=== PATIENT | female | born 1985 | race Caucasian/White ===

== ENCOUNTER 2017-06-01 17:56 | Outpatient (CLI) | payer MEDICAID ==
[~2017-06-01] VITALS: Ht 160 cm; Wt 92.6 kg
[2017-06-01 18:08] VITALS: BP 129/84; PULSE 75; Ht 160 cm; Wt 92.6 kg
[2017-06-01] MEDS ORDERED: PNV11TAB PO (18:10)
--- NOTE | 2017-06-01 21:08 | RADRPT ---
PROCEDURE: US OB biophysical profile. CLINICAL INDICATION: decreased movements TECHNIQUE: Multiple sonographic images of the pelvis were obtained. The images were reviewed on a PACS workstation. COMPARISON: No pertinent prior examinations were submitted for comparison. FINDINGS: There is a single viable intrauterine gestation. Cardiac activity is present with 137 beats per min [place]. There is a vertex presentation. The placenta is anterior, grade II to III appearance. There is a normal amount of amniotic fluid with an MY = 11.9 cm. Biophysical profile: movement 2/2 tone 2/2. breathing 2/2 MY 2/2 Total 02/17 IMPRESSION: Normal biophysical profile. RPTAT: HIKT . .Johnny Ma MD, MD Date Time Electronically viewed and signed by .Johnny Ma MD, on 06/01/2017 21:08 .T/
[2017-06-01] MEDS ORDERED: HYDROCODONE/APAP (5/325) TAB PO ONE (23:00)
--- NOTE | 2017-06-02 00:39 | TRIAGE ---
OB Triage Datetime Report Generated by CPN: 06/02/2017 00:39 Datetime: 06/01/2017 23:48 Stage of : OB Triage Pain Assessment Pain Scale: 2 Pain Presence: Intermittent Pain Type: Contraction Pain Location: Abdomen Datetime: 06/01/2017 23:10 Pain Assessment Pain Scale: 5 Pain Presence: Intermittent Pain Type: Contraction Pain Location: Abdomen; Back Pain Relief Measures: Comfort Measures Datetime: 06/01/2017 22:42 Stage of : OB Triage Labor Evaluation Frequency: OCC Monitor Mode: External Duration (sec)2399: 40-60 Quality: Mild Pattern: Normal: <= 5 Contractions in 10 Minutes Resting Tone [place]: Relaxed Heart Rate FHR Baseline Rate: 145 Monitor Mode: External US Variability: Moderate 6-25 bpm Accelerations: 15X15 Category: Category I Datetime: 06/01/2017 22:15 Stage of : OB Triage Labor Evaluation Frequency: 2-5 Monitor Mode: External Duration (sec)2399: 40-80 Quality: Mild Pattern: Normal: <= 5 Contractions in 10 Minutes Resting Tone [place]: Relaxed FHR Baseline Changes: No Baseline Change Variability: Moderate 6-25 bpm Accelerations: 15X15 Decelerations: None Category: Category I Datetime: 06/01/2017 21:25 Stage of : OB Triage Labor Evaluation Frequency: 2-7 Monitor Mode: External Duration (sec)2399: 40-60 Quality: Mild Pattern: Normal: <= 5 Contractions in 10 Minutes Resting Tone [place]: Relaxed Heart Rate FHR Baseline Rate: 135 Monitor Mode: External US Variability: Moderate 6-25 bpm Accelerations: 15X15 Decelerations: None Category: Category I Datetime: 06/01/2017 21:21 Monitor Mode: External Datetime: 06/01/2017 20:50 Vaginal Exam Dilatation (cms): 0.0 Effacement (%): 0 Station: -4 Membrane Status: Intact Cervix, Consistency: Moderate Datetime: 06/01/2017 20:30 Stage of : OB Triage Labor Evaluation Frequency: 5-10 Monitor Mode: External Duration (sec)2399: 40-70 Quality: Mild Resting Tone [place]: Relaxed Heart Rate FHR Baseline Rate: 135 Variability: Moderate 6-25 bpm Accelerations: 15X15 Decelerations: None Category: Category I Datetime: 06/01/2017 19:45 Stage of : OB Triage Datetime: 06/01/2017 19:35 Stage of : OB Triage Datetime: 06/01/2017 19:20 Stage of : OB Triage Labor Evaluation Frequency: 2-7 Monitor Mode: External Duration (sec)2399: 40-60 Quality: Mild Resting Tone [place]: Relaxed Heart Rate FHR Baseline Rate: 155 Monitor Mode: External US Variability: Moderate 6-25 bpm Accelerations: 15X15 Comments: PERIODS OF MINIMAL VARIABILITY Datetime: 06/01/2017 18:26 Stage of : OB Triage Datetime: 06/01/2017 18:05 Stage of : OB Triage Assessment Type: Triage Maternal Assessment Level of Consciousness: Fully Conscious DTR's/Clonus: DTRs 2+; No Clonus Headache: Denies Blurred Vision: No Respiratory Effort: Unlabored; Regular Rhythm; Equal Expansion Breath Sounds, Left: Clear and Equal Breath Sounds, Right: Clear and Equal Nausea/Vomiting: Denies RUQ Epigastric Pain: Denies Facial Edema: None Temperature Route: Axillary Fall Risk Assessment History of Falling: (0) No Secondary Diagnosis: (0) No Ambulatory Aid: (0) Bedrest/Nurse Assist IV Therapy: (0) No Gait: (0) Normal/Bedrest/Immobile Mental Status: (0) Oriented to Own Ability Fall Score: 0 Fall Risk Score Definition: No Risk: No action required Labor Evaluation Frequency: 0 Monitor Mode: External Resting Tone [place]: Relaxed Heart Rate FHR Baseline Rate: 150 Monitor Mode: External US Variability: Moderate 6-25 bpm Accelerations: 10X10 Decelerations: None Category: Category I Pain Assessment Pain Scale: 3 Pain Presence: Intermittent Pain Type: Cramping; Contraction Pain Location: Abdomen; Perineum Pain Goal: 3 Pain Relief Measures: Comfort Measures Datetime: 06/01/2017 18:04 EGA: 37.2 Datetime: 06/01/2017 18:03 Time of Arrival: 06/01/2017 17:48 Arrived By: Ambulatory Arrived From: Home Chief Complaint: C/O UC'S Q 10-15 MIN, DENIES BLEEDING, OR LEAKING Movement: Present Contractions: Irregular Contractions: 10-15 Rupture of Membranes: Denies Vaginal Bleeding: None Vaginal Discharge: Denies Recent Sexual Intercouse: Denies Abdominal Trauma: Not Applicable Patient Complaints: Contractions; Cramping Time Provider Notified: 06/01/2017 18:24 Provider Notified: DR. JO Initial Plan: MONITOR, VE, CALL
--- NOTE | 2017-06-02 07:42 | PN ---
Triage Information Date/Time Reason for visit: Uterine contractions Weeks of Gestation 37 2/7 /Para G1 Hypertention: none Additional information Late Entry Note: 31 Year-old G1 with SIUP at 37 2/7 weeks presents with a chief complaint of irreg ucs. She has been receiving her care with Dr. Martínez. She states good movement. She denies nausea, vomiting, shortness of breath, chest pain, abdominal pain, headache, visual changes, vaginal bleeding or LOF. Objective Vital Signs Date Time Temp Pulse Resp B/P Pulse Ox O2 Delivery O2 Flow Rate FiO2 06/01/17 18:08 98.9 75 129/84 Heart Rate: 130's Contractions: 6-10 Minutes Apart Disposition: Discharge Assessment/Plan 31 Year-old G1 with SIUP at 37 2/7 weeks with irreg ucs and no cx changes in 2 hrs interval. - FHR: No sign of metabolic acidosis- Category I - Continuous EFM, toco - Reactive NST. BPP: 10/10, MY: 11.9 - Symptoms and sign of labor, preeclampsia, kick count discussed with patient, she voiced understanding. All of her questions answered. - Patient was given one dose of norco, she states is comfortable with irreg ucs. She discharged home in stable condition with the appropriate discharge instructions provided. I would like patient to have close follow-up with her primary physician or outpatient clinic in 1-2 days or return to the ER for worsening symptoms or any other urgent concerns. DIONNE LYNN Jun 02, 2017 07:42
== END 2017-06-01 23:48 | disposition home or self-care (01) ==
LOC: OBT 17:56 → L-D 17:58 → OBT 23:48
PROVIDERS: ATTEND Obstetrics & Gynecology
DX: O62.9 Abnormality of forces of labor, unspecified (principal); Z3A.37 37 weeks gestation of pregnancy
CPT/HCPCS: 76818; Z7500; Z7610; G0463

== ENCOUNTER 2017-06-12 05:37 | Outpatient (CLI) | payer MEDICAID ==
[~2017-06-12] VITALS: Ht 162.6 cm; Wt 94.0 kg
[~2017-06-12 05:37] MED LIST: PNV11TAB PO
[2017-06-12 05:53] VITALS: BP 120/76; PULSE 75; RESP 16; Ht 162.6 cm; Wt 94.0 kg
--- NOTE | 2017-06-12 07:17 | RADRPT ---
PROCEDURE: US OB biophysical profile. CLINICAL INDICATION: decreased movements, contractions TECHNIQUE: Multiple sonographic images of the pelvis were obtained. The images were reviewed on a PACS workstation. COMPARISON: US PELVIS 06/01/2017 FINDINGS: There is a single viable intrauterine gestation. Cardiac activity is present with 135 beats per min [place]. There is a vertex presentation. The placenta is anterior. There is no evidence of placental abruption. There is a normal amount of amniotic fluid with an MY = 8.4 cm. Biophysical profile: movement 2/2 tone 2/2. breathing 2/2 MY 2/2 Total 02/17 RPTAT: AA . IMPRESSION: Normal biophysical profile. . .Rafael Maradiaga MD, MD Date Time Electronically viewed and signed by .Rafael Maradiaga MD, MD on 06/12/2017 07:17 .S/
--- NOTE | 2017-06-12 07:44 | PN ---
Triage Information Date/Time Reason for visit: Uterine contractions Weeks of Gestation 38+ /Para 1/0 Diabetes: none Hypertention: none Objective Vital Signs Date Time Temp Pulse Resp B/P Pulse Ox O2 Delivery O2 Flow Rate FiO2 06/12/17 05:53 98.0 75 16 120/76 Room Air Heart Rate: 140's Contractions: 6-10 Minutes Apart Disposition: Discharge Assessment/Plan patient will be followed up with her provider precautions discussed ROLANDO MUKHERJEE M.D. Jun 12, 2017 07:44
--- NOTE | 2017-06-12 08:24 | TRIAGE ---
OB Triage Datetime Report Generated by CPN: 06/12/2017 08:23 Datetime: 06/12/2017 07:30 Labor Evaluation Frequency: OCC Monitor Mode: External Quality: Mild Pattern: Normal: <= 5 Contractions in 10 Minutes Resting Tone [place]: Relaxed Heart Rate FHR Baseline Rate: 135 Monitor Mode: External US FHR Baseline Changes: No Baseline Change Variability: Moderate 6-25 bpm Accelerations: 15X15 Decelerations: None Category: Category I Pain Assessment Pain Scale: 2 Pain Presence: Intermittent Pain Type: Ache Pain Location: Abdomen Pain Goal: 0 Pain Relief Measures: Comfort Measures Datetime: 06/12/2017 06:40 Stage of : OB Triage Labor Evaluation Frequency: 3-9 Monitor Mode: External Duration (sec)2399: 60-120 Quality: Mild Pattern: Normal: <= 5 Contractions in 10 Minutes Resting Tone [place]: Relaxed Contraction Comments: PT DENIES FEELING ANY UC'S Heart Rate FHR Baseline Rate: 145 Monitor Mode: External US Variability: Moderate 6-25 bpm Accelerations: 15X15 Decelerations: None Pain Assessment Pain Scale: 7 Pain Presence: Intermittent Pain Type: Sharp Pain Location: Abdomen Pain Goal: 3 Pain Assessment Comments: PT DENIES FEELING ANY UC'S BUT STATES PAIN IS NOW 7/10 WHEN BABY MOVES Datetime: 06/12/2017 05:53 Stage of : OB Triage Vaginal Exam Dilatation (cms): 0.0 Effacement (%): 0 Station: -4 Exam By: EM Membrane Status: Intact Datetime: 06/12/2017 05:48 Stage of : OB Triage Assessment Type: Triage Maternal Assessment Level of Consciousness: Fully Conscious DTR's/Clonus: DTRs 2+; No Clonus Headache: Denies Blurred Vision: No Respiratory Effort: Unlabored; Regular Rhythm; Equal Expansion Breath Sounds, Left: Clear and Equal Breath Sounds, Right: Clear and Equal Nausea/Vomiting: Denies RUQ Epigastric Pain: Denies Lower Extremities Edema: None Degree: None Upper Extremities Edema: None Degree: None Facial Edema: None Temperature Route: Oral Fall Risk Assessment History of Falling: (0) No Secondary Diagnosis: (0) No Ambulatory Aid: (0) Bedrest/Nurse Assist IV Therapy: (0) No Gait: (0) Normal/Bedrest/Immobile Mental Status: (0) Oriented to Own Ability Fall Score: 0 Fall Risk Score Definition: No Risk: No action required Pain Assessment Pain Scale: 6 Pain Presence: Intermittent Pain Type: Sharp Pain Location: Abdomen Pain Goal: 3 Datetime: 06/12/2017 05:42 Contraction Comments: TOCO APPLIED Comments: US APPLIED Datetime: 06/12/2017 05:37 Time of Arrival: 06/12/2017 05:27 EGA: 38.6 Arrived By: Wheelchair Arrived From: Emergency Dept Chief Complaint: PT STATES PAIN 6/10 "WHEN BABY MOVES" Movement: Present Contractions: Regular Time Contractions Began: 06/11/2017 23:00 Contractions: 3-7 Rupture of Membranes: Denies Vaginal Bleeding: None Vaginal Discharge: Present Recent Sexual Intercouse: Denies Abdominal Trauma: Not Applicable Patient Complaints: Other Time Provider Notified: 06/12/2017 06:10 Provider Notified: SANDRO Initial Plan: EFM; VE Datetime: 06/01/2017 18:05 Fall Score: 0 Fall Risk Score Definition: No Risk: No action required Datetime: 06/01/2017 18:04 EGA: 37.2
== END 2017-06-12 07:55 | disposition home or self-care (01) ==
LOC: OBT 05:37 → L-D 05:38 → OBT 07:55
PROVIDERS: ATTEND Obstetrics & Gynecology
DX: O62.9 Abnormality of forces of labor, unspecified (principal); Z3A.38 38 weeks gestation of pregnancy
CPT/HCPCS: 76818; Z7500; G0463

== ENCOUNTER 2017-06-29 17:46 | Emergency (ER) | payer MEDICAID ==
[~2017-06-29] VITALS: Ht 157.5 cm; Wt 80.0 kg
[2017-06-29 18:09] VITALS: Ht 157.5 cm; Wt 80.0 kg
[2017-06-29 18:54] LABS: ALBUMIN 3.9 g/dl (3.3-4.9); ALBUMIN/GLOBULIN RATIO 1.11; BILIRUBIN,INDIRECT 0.2 mg/dl (0-1.1); BILIRUBIN,TOTAL 0.2 mg/dl (0.2-1.3); CALCIUM 9.8 mg/dl (8.4-10.2); CREATININE 0.79 mg/dl (0.44-1.00); POTASSIUM 4.2 mmol/L (3.5-5.1); TOTAL PROTEIN 7.4 g/dl (6.1-8.1)
[2017-06-29 18:55] LABS: ADD UMIC YES; UR ASCORBIC ACID NEGATIVE (NEGATIVE); UR BACTERIA FEW /HPF (NONE SEEN); UR BILIRUBIN (Dip) NEGATIVE (NEGATIVE); UR BLOOD (Dip) 3+ mg/dL (NEGATIVE); UR CLARITY CLOUDY (CLEAR); UR COLOR YELLOW (YELLOW); UR GLUCOSE (Dip) NEGATIVE (NEGATIVE); UR KETONES (Dip) NEGATIVE (NEGATIVE); UR LEUKOCYTE ESTERASE (Dip) 3+ Leu/ul (NEGATIVE); UR MUCUS FEW /HPF (NONE SEEN); UR NITRITE (Dip) POSITIVE (NEGATIVE); UR RBC > 182 /HPF (0-5); UR SPECIFIC GRAVITY (Dip) 1.014 (1.003-1.030); UR TOTAL PROTEIN (Dip) 2+ mg/dl (NEGATIVE); UR UROBILINOGEN (Dip) NEGATIVE (NEGATIVE)
--- NOTE | 2017-06-29 19:58 | ERD ---
ER Documentation Chief Complaint Chief Complaint sent by her OB for htn but not hypertensive here HPI This is a 31-year-old female who was sent to the emergency room for evaluation of hypertension. The patient delivered 2 weeks ago via section a well baby however she had preeclampsia which prompted the section. It appears the patient went to a clinic and her blood pressure was in the 130s and she was told to come to the emergency room. The patient is asymptomatic. She denies any chest pain or shortness of breath, no abdominal pain, no lower extremity swelling or pitting edema. A operator weapon locating radar was used. ROS All systems reviewed and are negative except as per history of present illness. Medications Home Meds Active Scripts Cephalexin* (Cephalexin*) 500 Mg Capsule, 500 MG PO BID for 7 Days, CAP Prov:AMANDA DAVIS MD 06/29/17 Reported Medications [id number] ( 19) 1 Each Tablet, 1 TAB PO DAILY, TAB 06/01/17 Allergies Allergies: Coded Allergies: No Known Allergy (Unverified , 06/29/17) PMhx/Soc Medical and Surgical Hx: pt denies Medical Hx Hx Alcohol Use: No Hx Substance Use: No Hx Tobacco Use: No Smoking Status: Unknown if ever smoked FmHx Family History: No diabetes Physical Exam Vitals Vital Signs Date Time Temp Pulse Resp B/P Pulse Ox O2 Delivery O2 Flow Rate FiO2 06/29/17 20:17 77 16 143/91 99 Room Air 06/29/17 18:09 99.1 89 18 130/82 98 Physical Exam General: Well developed, well nourished, no acute distress Head: Normocephalic, atraumatic. Eyes: Pupils equally reactive, EOM intact ENT: Moist mucous membranes Neck: Supple, no lymphadenopathy Respiratory: Lungs clear bilaterally, no distress Cardiovascular: RRR, no murmurs, rubs, or gallops Abdominal: Soft, non-tender, non-distended, no peritoneal signs : Deferred MSK: No edema, no unilateral swelling, 5/5 strength Neurologic: Alert and oriented, moving all extremities, normal speech, no focal weakness, no cerebellar signs Skin: No rash Psych: Normal mood Result Diagram: 06/29/178 06/29/178 Results 24 hrs Laboratory Tests Test 06/29/17 18:15 06/29/17 18:18 Urine Color YELLOW Urine Clarity CLOUDY Urine pH 5.0 Urine Specific [place] 1.014 Urine Ketones NEGATIVEmg/dL Urine Nitrite POSITIVEmg/dL Urine Bilirubin NEGATIVEmg/dL Urine Urobilinogen NEGATIVEmg/dL Urine Leukocyte Esterase 3+Adis/ul Urine Microscopic RBC > 182/HPF Urine Microscopic WBC > 182/HPF Urine Bacteria FEW/HPF Urine Mucus FEW/HPF Urine Hemoglobin 3+mg/dL Urine Glucose NEGATIVEmg/dL Urine Total Protein 2+mg/dl White Blood Count 12.010^3/ul Red Blood Count 4.5510^6/ul Hemoglobin 11.1g/dl Hematocrit 34.2% Mean Corpuscular Volume 75.2fl Mean Corpuscular Hemoglobin 24.4pg Mean Corpuscular Hemoglobin Concent 32.5g/dl Red Cell Distribution Width 17.1% Platelet Count 66426^3/UL Mean Platelet Volume 9.3fl Neutrophils % 67.1% Lymphocytes % 23.0% Monocytes % 7.6% Eosinophils % 1.6% Basophils % 0.3% Nucleated Red Blood Cells % 0.0/100WBC Neutrophils # 8.010^3/ul Lymphocytes # 2.810^3/ul Monocytes # 0.910^3/ul Eosinophils # 0.210^3/ul Basophils # 0.010^3/ul Nucleated Red Blood Cells # 0.010^3/ul Sodium Level 143mmol/L Potassium Level 4.2mmol/L Chloride Level 104mmol/L Carbon Dioxide Level 28mmol/L Anion Gap 15 Blood Urea Nitrogen 13mg/dl Creatinine 0.79mg/dl Glucose Level 104mg/dl Calcium Level 9.8mg/dl Total Bilirubin 0.2mg/dl Direct Bilirubin 0.00mg/dl Indirect Bilirubin 0.2mg/dl Aspartate Amino Transf (AST/SGOT) 42IU/L Alanine Aminotransferase (ALT/SGPT) 44IU/L Alkaline Phosphatase 110IU/L Lactate Dehydrogenase 601IU/L Total Protein 7.4g/dl Albumin 3.9g/dl Globulin 3.50g/dl Albumin/Globulin Ratio 1.11 Current Medications Medications (Trade) Dose Ordered Sig/Gal Route PRN Reason Start Time Stop Time Status Last Admin Dose Admin Cephalexin (Keflex) 500 mg ONCE ONCE PO 06/29/17 20:00 12/18/17 20:01 DC 06/29/17 20:10 Procedures/MDM LAB INTERPRETATION: No significant leukocytosis, no evidence of LDH elevation or liver function abnormalities. The patient has proteinuria and positive urinary tract infection MEDICAL DECISION MAKING: The patient presents to the emergency room for elevated blood pressure. The patient had a diagnosis of preeclampsia prompting section. She is grossly asymptomatic currently. Her blood pressure is only mildly elevated in the 130 systolic. I have a low pretest probability for preeclampsia , no signs of eclampsia. However, given that the patient was referred here by her OB clinic I will evaluate the patient with laboratory testing. ER COURSE: The patient does have some proteinuria and I will consult with JIG INSPECTOR. I attempted to contact her referring JIG INSPECTOR but they did not answer. The patient also has a urinary tract infection was given Keflex. The patient does have some proteinuria and her blood pressure is in the 140 systolic but she is grossly asymptomatic. Her primary JIG INSPECTOR did not answer therefore I spoke to my labor asked risk and insurance consultant. I spoke to Dr. Galan and we discussed the case. She states that given that the patient is asymptomatic with blood pressure in the 140s and known diagnosis of preeclampsia that the patient does not require hospitalization. She does recommend discharge with close primary JIG INSPECTOR follow-up. She states the patient's return for any symptoms and I advised this to the patient using a operator weapon locating radar who verbalized understanding. First dose of Keflex provided in the emergency room. And the patient can be safely discharged. I kept the patient and/or family informed of laboratory and diagnostic imaging results throughout the emergency room course. DISPOSITION PLAN: We discussed follow up with the patient's primary care doctor within 24 to 48 hours as needed. We also discussed return to the emergency room for worsening symptoms or worsening condition. Outpatient referral: The patient should follow-up with her primary OB with [facility] tomorrow for blood pressure recheck Discharge Medications: Keflex Departure Diagnosis: Primary Impression: Preeclampsia Trimester: unspecified trimester Qualified Code: O14.90 - Pre-eclampsia, antepartum Additional Impression: UTI (urinary tract infection) Urinary tract infection type: acute cystitis Hematuria presence: without hematuria Qualified Code: N30.00 - Acute cystitis without hematuria Condition: Stable AMANDA DAVIS MD Jun 29, 2017 19:58
[2017-06-29] MEDS ORDERED: CEPHALEXIN 500 MG CAP PO ONE (20:00)
[2017-06-29 20:10] LABS: BASOPHILS % 0.3 % (0.0-2.0); EOSINOPHILS # 0.2 10^3/ul (0.0-0.5); EOSINOPHILS % 1.6 % (0.0-7.0); HEMATOCRIT 34.2 % (37.0-47.0); HEMOGLOBIN 11.1 g/dl (12.0-16.0); LYMPHOCYTES # 2.8 10^3/ul (0.8-2.9); MEAN CORPUSCULAR HEMOGLOBIN 24.4 pg (29.0-33.0); MEAN CORPUSCULAR HGB CONC 32.5 g/dl (32.0-37.0); MEAN CORPUSCULAR VOLUME 75.2 fl (82.0-101.0); MEAN PLATELET VOLUME 9.3 fl (7.4-10.4); MONOCYTE # 0.9 10^3/ul (0.3-0.9); MONOCYTES % 7.6 % (0.0-11.0); NEUTROPHILS % 67.1 % (39.0-77.0); PLATELET COUNT 606 10^3/UL (140-415); RED BLOOD COUNT 4.55 10^6/ul (4.20-5.40); RED CELL DISTRIBUTION WIDTH 17.1 % (11.5-14.5)
[2017-06-29] MEDS ORDERED: CEPH500C PO (20:13)
[2017-06-29 20:17] VITALS: BP 143/91; PULSE 77; RESP 16
== END 2017-06-29 20:23 | disposition home or self-care (01) ==
LOC: E/R 17:46
DX: O14.95 Unspecified pre-eclampsia, complicating the puerperium (principal); O86.22 Infection of bladder following delivery; B96.89 Other specified bacterial agents as the cause of diseases classified elsewhere; R40.2142 Coma scale, eyes open, spontaneous, at arrival to emergency department; R40.2252 Coma scale, best verbal response, oriented, at arrival to emergency department; R40.2362 Coma scale, best motor response, obeys commands, at arrival to emergency department
CPT/HCPCS: 36415; 80053; 81001; 83615; 85025; Z7502; Z7610; 99283

== ENCOUNTER 2017-07-03 22:04 | Emergency (ER) | END 2017-07-04 03:03 | disposition home or self-care (01) ==

== ENCOUNTER 2018-12-31 13:23 | Inpatient (IN) | payer MEDICAID ==
[~2018-12-31] VITALS: Ht 160 cm; Wt 85.8 kg
[~2018-12-31 13:23] MED LIST changes: +CEPH-443 PO; +CEPH500C PO; +IBUP-1542 PO
[2018-12-31 13:57] VITALS: BP 119/77; PULSE 90; Ht 160 cm; Wt 85.8 kg
[2018-12-31] MEDS ORDERED: LANT3I SC (14:02)
[2018-12-31] MEDS ORDERED: LACTATED RINGER'S 1,000 ML IV SCH ×2 (17:00→19:00)
[2018-12-31] MEDS ORDERED: INSULIN LISPRO 100 UNIT/ML VIAL SC ONE (18:00)
[2018-12-31] MEDS ORDERED: INSULIN ASPART [NOVOLOG] 3 ML PEN SC ONE (18:00)
[2018-12-31] MEDS ORDERED: ACCU-CHEK XX ONE (18:00)
[2018-12-31] MEDS: LACTATED RINGER'S 1,000 ML IV SCH ×3 (18:02→23:09)
[2018-12-31] MEDS ORDERED: ONDANSETRON 4 MG INJ IV PRN (22:00)
[2018-12-31] MEDS ORDERED: MAGNESIUM SULFATE 4 GM/100 ML 100 ML IV ONE (22:00)
--- NOTE | 2018-12-31 22:52 | HP ---
Date/Time of Note Date/Time of Note DATE: 12/31/18 TIME: 22:48 OB - History Hx of Present Free Text/Dictation 33-year-old 2 para 1 at 34 weeks and 4 days of gestation with estimated date of delivery February 07, 2019 Patient receives care at [facility] She presents with decreased movement and uterine contractions Patient denies vaginal bleeding or leaking fluid Patient is a pre-gestational diabetic on insulin Her blood sugar on arrival was 228 subsequently she received 5 units of Humalog and the repeat blood glucose level was 143 records reviewed and indicating; Hemoglobin A1c 13.4 Estimated Due Date: Feb 07, 2019 : 2 Para: 1 Care: Good Care Obstetrical Complications: Other (Pre-gestational diabetes on insulin) Past Family/Social History * Past Medical, Surgical, Family and Obstetric Histories reviewed from chart. OB Admission Exam Vital Signs Vital Signs Vital Signs Date Temp Pulse Resp B/P (MAP) Pulse Ox O2 O2 Flow FiO2 Time Delivery Rate 12/31/18 98.4 90 119/77 13:57 (91) Physical Exam HEENT: WNL Heart: Rhythm Normal Lungs: Clear, Equal Abdomen: WNL Extremities: Normal Reflexes: Normal Cervical Dilatation: 1cm Effacement: 50% Station: -3 Membranes: Intact Heart Rate: 140's Accelerations: Accelerations Present Decelerations: No Decelerations Varibility: Moderate Contractions on Admission: 6-10 Minutes Apart Intensity: Moderate Last 72 hourBlood Glucose Bedside Glucose - 72 Hours Test 12/31/18 17:21 12/31/18 20:34 Bedside Glucose 228 mg/dL (70-220) H 143 mg/dL (70-220) Last 72 hours Lab Results CBC & BMP 12/31/18 17:50 PROCEDURE: LIMITED OBSTETRICAL ULTRASOUND, BIOPHYSICAL PROFILE CLINICAL INDICATION: 33 years of age, female. well being. Decreased movements. TECHNIQUE: Multiple sonographic images of the pelvis were obtained. Transabdominal views of the gravid uterus are available for review. The images were reviewed on a PACS workstation. COMPARISON: None available. FINDINGS: ROSALINDA February 07, 2019 EGA by ROSALINDA 34 weeks 4 days BIOPHYSICAL PROFILE: breathing movement = 2/2 tone = 2/2 motion = 2/2 Amniotic fluid = 2/2 MY = 22.3 cm. Maximum vertical pocket 7.4 cm. Single live intrauterine in cephalic presentation. heart rate measures 137 bpm. Placenta is posterior, grade 2 . Cervix (transabdominal): Not evaluated IMPRESSION: 1. Single living fetus in cephalic presentation. 2. Biophysical profile = 8/8. 3. Polyhydramnios. MY = 22.3 cm. Maximum vertical pocket 7.4 cm. 4. Posterior placenta grade 2. RPTAT: HCTS Physician Wilfrid Date Time Electronically viewed and signed by Physician Wilfrid on 12/31/2018 16:56 CS/ CC: ROXANNE DRAKE MD [id number] PROCEDURE: US OB. CLINICAL INDICATION: well-being. Gestational diabetes. TECHNIQUE: Multiple sonographic images of the uterus were obtained. The images were reviewed on a PACS workstation. COMPARISON: US PELVIS 12/31/2018 FINDINGS: There is a single live intrauterine gestation. heart rate is 168 beats per minute. Measurements were made in order to determine age. The results are as follows: BPD = 8.95 cm. HC = 33.78 cm. AC = 37.97 cm. FL = 6.97 cm. Estimated weight is 3839 +/- 575 grams. LMP growth percentile is greater than 97 %. Menstrual age by ultrasound dates is 38 weeks 1 day. The estimated date of delivery is 01/13/2019. Position is cephalic and placenta is posterior grade II. There is no evidence for an abruption or placenta previa. IMPRESSION: 1. Single live intrauterine gestation of 38 weeks 1 day menstrual age by ultrasound dates. 2. The estimated date of delivery is 01/13/2019 RPTAT: HRSR Physician Kimberly Date Time Electronically viewed and signed by Physician Kimberly on 01/01/2019 06:23 RR/ CC: VITA WORRELL MD [id number] OB Assessment/Plan Reason for admission: labor (and Uncontrolled diabetes) Other plan: Admit to antepartum IV fluids and labs Sliding scale insulin Betamethasone for lung maturity Magnesium sulfate for neuro protection and prevention of labor Perinatology consultation VITA WORRELL MD Dec 31, 2018 22:52
[2018-12-31] MEDS ORDERED: GLUCOSE GEL 15 GRAM TUBE BUCCAL PRN (23:00)
[2018-12-31] MEDS ORDERED: GLUCAGON 1 MG INJ IM PRN (23:00)
[2018-12-31] MEDS ORDERED: DEXTROSE 50% 50 ML SYRINGE IV PRN ×2 (23:00)
[2018-12-31] MEDS ORDERED: GLUCOSE GEL 15 GRAM TUBE PO PRN ×2 (23:00)
[2018-12-31] MEDS: BETAMET NA PHOS/AC(6 MG/ML) 2 ML INJ SYG IM SCH (23:28)
[2018-12-31] MEDS: MAGNESIUM SULFATE 20 GM/500 ML 500 ML IV SCH (23:44)
[2018-12-31] MEDS: ACETAMINOPHEN 325 MG TAB PO PRN (23:45)
[2019-01-01] MEDS ORDERED: INSULIN GLARGINE [LANTus] (100 UNITS/ML) SYG SC ONE (00:30)
[2019-01-01] MEDS ORDERED: INSULIN ASPART [NOVOLOG] 3 ML PEN SC ONE (03:47)
[2019-01-01] MEDS ORDERED: ACCU-CHEK XX SCH (06:00)
[2019-01-01] MEDS: INSULIN ASPART [NOVOLOG] 3 ML PEN SC SCH ×4 (07:35→21:29)
[2019-01-01] MEDS: MAGNESIUM SULFATE 20 GM/500 ML 500 ML IV SCH (08:44)
[2019-01-01] MEDS: PRENATAL VITAMIN PO SCH (09:16)
[2019-01-01] MEDS: ACETAMINOPHEN 325 MG TAB PO PRN (09:21)
[2019-01-01] MEDS: ACCU-CHEK XX SCH ×5 (09:35→19:35)
--- NOTE | 2019-01-01 10:07 | PERINOTE ---
Date/Time of Note Date/Time of Note DATE: 01/01/19 TIME: 09:53 Assessment/Recommendations Other Assessments 33 yo with IUP at 34w4d admitted for labor. Also with uncontrolled diabetes, with EFW in the 97%. Receiving steroids. GBS unknown Recommendations: 1. Discontinue magnesium sulfate. Recommend use of nifedipine if tocolysis is going to be used after 32 weeks. Discontinue all tocolytics 24h after second betamethasone dose. 2. Initiate antibiotic coverage for GBS unknown 3. Consider NICU consultation 4. Repeat assessment of cervix to assess for cervical change. If patient is not progressing in labor, patient may be discharged 24h after discontinuation of tocolytics. 5. Agreee with insulin sliding scale and QHS dosing. If patient is discharged undelivered, recommend follow-up in 1 week for outpatient diabetes management. Patient is likely to have macrosomia and recommend ultrasound for EFW at 37-38 weeks if patient is discharged undelivered. OB Subjective Free Text/Dictaton 33 yo with IUP at 34w4d admitted for labor. Patient presented for decreased movement and contractions to triage yesterday. Denies LOF/vaginal bleeding. She reports this has been complicated by diabetes. She takes insulin, although it does not appear that it was well controlled and was likely pregestational. Patient has history of one prior term delivery which was also complicated by diabetes and gHTN/preeclampsia. PMH: denies - although likely DM PSH: delivery, leg surgery Meds: PNV, insulin NKDA SH: denies T/A/D HD# 2 IUP @ 34w4d Complaints/Overnight events Patient is on magnesium sulfate, insulin QHS and sliding scale. She has received one dose of betamethasone. Vaginal exam on admission was /-3. Current Medications Current Medications Lactated Ringer's 1,000 ml @ 125 mls/hr Q8H IV Last administered on 12/31/18at 19:04; Admin Dose 125 MLS/HR; Start 12/31/18 at 17:45; Stop 01/01/19 at 22:00 Lactated Ringer's 1,000 ml @ 75 mls/hr [id number] IV Last administered on 12/31/18at 23:09; Admin Dose 75 MLS/HR; Start 12/31/18 at 21:59 Magnesium Sulfate 500 ml @ 50 mls/hr Q10H IV Last administered on 01/01/19at 08:44; Admin Dose 50 MLS/HR; Start 12/31/18 at 21:59 Betamethasone Acet/Betameth SodPhos (Celestone Soluspan) 12 mg Q24H IM Last administered on 12/31/18at 23:28; Admin Dose 12 MG; Start 12/31/18 at 22:00; Stop 01/01/19 at 22:01 Prenat Multivit/ [place]/Iron/Folic Ac () 1 tab DAILY PO Last administered on 01/01/19at 09:16; Admin Dose 1 TAB; Start 01/01/19 at 09:00 Docusate Sodium (Colace) 100 mg DAILY PO ; Start 01/01/19 at 09:00 Acetaminophen (Tylenol Tab) 650 mg Q4H PRN PO .PAIN OR TEMP Last administered on 01/01/19at 09:21; Admin Dose 650 MG; Start 12/31/18 at 22:00 Ondansetron HCl (Zofran Inj) 4 mg Q6H PRN IV NAUSEA/VOMITING; Start 12/31/18 at 22:00 Diagnostic Test (Pha) (Accu-Chek) 1 ea FBSPP XX ; Start 01/01/19 at 06:00 Diagnostic Test (Pha) (Accu-Chek) 1 ea 2 HOURS AFTER MEALS XX ; Start 01/01/19 at 09:35 Diagnostic Test (Pha) (Accu-Chek) 1 ea FASTING BLOOD SUGAR XX ; Start 01/01/19 at 06:00 Insulin Aspart (Novolog Insulin Pen) NOVOLOG *MODERATE* ALGORITHM WITH MEALS BEDTIME SC Last administered on 01/01/19at 07:35; Admin Dose 2 UNIT; Start 01/01/19 at 07:35 Miscellaneous Information 1 ea NOTE XX ; Start 12/31/18 at 23:00 Glucose (Glutose) 15 gm Q15M PRN PO DECREASED GLUCOSE; Start 12/31/18 at 23:00 Glucose (Glutose) 22.5 gm Q15M PRN PO DECREASED GLUCOSE; Start 12/31/18 at 23:00 Dextrose (D50w Syringe) 25 ml Q15M PRN IV DECREASED GLUCOSE; Start 12/31/18 at 23:00 Dextrose (D50w Syringe) 50 ml Q15M PRN IV DECREASED GLUCOSE; Start 12/31/18 at 23:00 Glucagon (Glucagen) 1 mg Q15M PRN IM DECREASED GLUCOSE; Start 12/31/18 at 23:00 Glucose (Glutose) 15 gm Q15M PRN BUCCAL DECREASED GLUCOSE; Start 12/31/18 at 23:00 Insulin Glargine (Lantus) 10 units DAILY@2000 SC ; Start 01/01/19 at 20:00 OB Admission Exam Physical Exam Vitals: Vital Signs Date Temp Pulse Resp B/P (MAP) Pulse Ox O2 O2 Flow FiO2 Time Delivery Rate 12/31/18 98.4 90 119/77 13:57 (91) Last 72 hourBlood Glucose Bedside Glucose - 72 Hours Test 12/31/18 17:21 12/31/18 20:34 01/01/19 00:17 01/01/19 01:20 Bedside 228 143 101 168 Glucose mg/dL (70-220) mg/dL (70-220) mg/dL (70-220) mg/dL (70-220) H Test 01/01/19 03:26 01/01/19 07:43 Bedside 197 178 Glucose mg/dL (70-220) mg/dL (70-220) Last 72 hours Lab Results CBC & BMP 12/31/18 17:50 01/01/19 05:39 Liver Function Test 12/31/18 17:50 01/01/19 05:39 Alanine Aminotransferase (ALT/SGPT) 14 19 Albumin 3.5 3.4 Alkaline Phosphatase 161 H 168 H Aspartate Amino Transf (AST/SGOT) 21 21 Direct Bilirubin 0.00 0.00 Total Protein 6.7 6.5 Magnesium Level Test 01/01/19 05:39 Magnesium Level 5.0 H Ultrasound Results EFW 3839 Position cephalic BPP 8/8 MY 22.3 Cervical Length not performed KARINA SANCHEZ MD Jan 01, 2019 10:03
[2019-01-01] MEDS: LACTATED RINGER'S 1,000 ML IV SCH ×2 (11:38→15:53)
--- NOTE | 2019-01-01 12:50 | QN ---
Documentation Comment HD #1 for PTL and pregestational diabetes. 33 y.o. with an IUP at 34w 4d. Pt gets her care at [facility] and normally the transfer of care for these pts occurs at [address] Ingram. Pt reports that she did not have GDM in her 1st nor before the , however she says at her 1st care visit at 7 weeks she was told she has diabetes which would be pregestational. Her initial HgbA1c was 13. She was on Metformin 500 BID in September, October and November and was placed on Lantus insulin at night in November as she still had persistent elevated AM BS's. The pt states that a nurse in the clinic told her she did not need to take the Metformin anymore as she was on the Lantus(?) so she stopped 3- 4 weeks ago. Her BS's when she was admitted were over 200. Pt has received Betamethasone last night and is due for a 2nd dose tonight. She Pt appears very comfortable and is not complaining of any UC's. tracing: [id number] with accels to 160 BPM. No decels. Occas. UC's. P: Will restart the metformin 500 BID and maintain the Lantus. The pt will still need secondary coverage due to the beta-methasone but hopefully less. The perinatologist also recommended that the magnesium be stopped and Procardia initiated. LIDIA FERNANDEZ MD Jan 01, 2019 12:49
--- NOTE | 2019-01-01 14:00 | CONS ---
Consultation Date/Type/Reason Admit Date/Time Dec 31, 2018 at 22:00 Date of Consultation: Jan 01, 2019 Type of Consult consult regarding labor. Date/Time of Note DATE: 01/01/19 TIME: 13:42 Hx of Present Illness I was asked to talk to this mom regarding labor at 34 4/7 wks GA. mom is 33 yr female with labor and uncontrolled diabetes. mom had care and she is O+/ RPR non reactive/ HBSAG neg/ HIV neg/ GBS unknown. EDC 02/08/19. mom received two doses of betamethasone, was on Mg sulfate for tocolysis. she will be on Metformin and insulin if needed, she has occasional contraction and not ruptured. I spoke to parents at bed side using dad as an interpreter and translator. I discussed with them mortality and morbidity of delivery at 34 4/7 wks gestation and possible need to admitt to NICU if delivered before completed 35 wks with special emphasis on; - lung immaturity and possible need for respiratory support, endotracheal intubation/ respiratory support and surfactant administration, - possible feeding difficulties and lack of sucking and swallowing coordination - Temperature instability and need for isollette care - R/O sepsis and possible need to administer antibiotics - other complications of prematurity which will be very rare considering infant gestational age. they seem to understand what they were told and had no questions. Prognosis: very good Will be around at the time of delivery. Thank you for requesting consult. Additional Comments total time spent on this consult including talking to parent and documenting the consult in the chart is 40 minutes Past Medical History Home Meds Active Scripts Ibuprofen* (Motrin*) 600 Mg Tab, 600 MG PO Q6H PRN for PAIN AND OR ELEVATED TEMP, #30 TAB Prov:YOLETTE BENTON NP 07/04/17 Cephalexin* (Keflex*) 500 Mg Capsule, 500 MG PO QID for 10 Days, CAP Prov:YOLETTE BENTON NP 07/04/17 Cephalexin* (Cephalexin*) 500 Mg Capsule, 500 MG PO BID for 7 Days, CAP Prov:AMANDA DAVIS MD 06/29/17 Reported Medications Insulin Glargine* (Lantus*) 100 Unit/Ml Soln, 1 UNIT SC QHS, #1 VIAL 12/31/18 [id number] ( 19) 1 Each Tablet, 1 TAB PO DAILY, TAB 06/01/17 Medications Current Medications Lactated Ringer's 1,000 ml @ 125 mls/hr Q8H IV Last administered on 01/01/19at 11:38; Admin Dose 125 MLS/HR; Start 12/31/18 at 17:45; Stop 01/01/19 at 22:00 Lactated Ringer's 1,000 ml @ 75 mls/hr [id number] IV Last administered on 12/31/18at 23:09; Admin Dose 75 MLS/HR; Start 12/31/18 at 21:59 Betamethasone Acet/Betameth SodPhos (Celestone Soluspan) 12 mg Q24H IM Last administered on 12/31/18at 23:28; Admin Dose 12 MG; Start 12/31/18 at 22:00; Stop 01/01/19 at 22:01 Prenat Multivit/ [place]/Iron/Folic Ac () 1 tab DAILY PO Last administered on 01/01/19at 09:16; Admin Dose 1 TAB; Start 01/01/19 at 09:00 Docusate Sodium (Colace) 100 mg DAILY PO ; Start 01/01/19 at 09:00 Acetaminophen (Tylenol Tab) 650 mg Q4H PRN PO .PAIN OR TEMP Last administered on 01/01/19at 09:21; Admin Dose 650 MG; Start 12/31/18 at 22:00 Ondansetron HCl (Zofran Inj) 4 mg Q6H PRN IV NAUSEA/VOMITING; Start 12/31/18 at 22:00 Diagnostic Test (Pha) (Accu-Chek) 1 ea FBSPP XX ; Start 01/01/19 at 06:00 Diagnostic Test (Pha) (Accu-Chek) 1 ea 2 HOURS AFTER MEALS XX ; Start 01/01/19 at 09:35 Diagnostic Test (Pha) (Accu-Chek) 1 ea FASTING BLOOD SUGAR XX ; Start 01/01/19 at 06:00 Insulin Aspart (Novolog Insulin Pen) NOVOLOG *MODERATE* ALGORITHM WITH MEALS BEDTIME SC Last administered on 01/01/19at 12:02; Admin Dose 4 UNIT; Start 01/01/19 at 07:35 Miscellaneous Information 1 ea NOTE XX ; Start 12/31/18 at 23:00 Glucose (Glutose) 15 gm Q15M PRN PO DECREASED GLUCOSE; Start 12/31/18 at 23:00 Glucose (Glutose) 22.5 gm Q15M PRN PO DECREASED GLUCOSE; Start 12/31/18 at 23: 00 Dextrose (D50w Syringe) 25 ml Q15M PRN IV DECREASED GLUCOSE; Start 12/31/18 at 23:00 Dextrose (D50w Syringe) 50 ml Q15M PRN IV DECREASED GLUCOSE; Start 12/31/18 at 23:00 Glucagon (Glucagen) 1 mg Q15M PRN IM DECREASED GLUCOSE; Start 12/31/18 at 23:00 Glucose (Glutose) 15 gm Q15M PRN BUCCAL DECREASED GLUCOSE; Start 12/31/18 at 23:00 Insulin Glargine (Lantus) 10 units DAILY@2000 SC ; Start 01/01/19 at 20:00 Nifedipine (Procardia) 10 mg Q6 PO ; Start 01/01/19 at 13:00 Metformin HCl (Glucophage) 500 mg BID WITH MEALS PO ; Start 01/01/19 at 17:35 Allergies: Coded Allergies: No Known Allergy (Unverified , 06/29/17) Social History Smoking Status: Never smoker Exam/Review of Systems Exam Vitals Vital Signs Date Temp Pulse Resp B/P (MAP) Pulse Ox O2 O2 Flow FiO2 Time Delivery Rate 12/31/18 98.4 90 119/77 13:57 (91) Intake and Output 12/31/18 12/31/18 01/01/19 1515:00 23:00 07:00 IntakeIntake Total 1800 ml 2460 ml OutputOutput Total 700 ml 3100 ml BalanceBalance 1100 ml -640 ml Results Result Diagram: 12/31/18 1750 01/01/19 0539 Results 24hrs Laboratory Tests Test 12/31/18 17:21 12/31/18 17:50 12/31/18 18:00 12/31/18 18:09 Bedside Glucose 228 H White Blood Count 8.3 # Red Blood Count 5.01 Hemoglobin 12.3 Hematocrit 38.2 Mean Corpuscular 76.2 L Volume Mean Corpuscular 24.6 L Hemoglobin Mean Corpuscular 32.2 Hemoglobin Concent Red Cell 16.5 H Distribution Width Platelet Count 315 # Mean Platelet Volume 11.3 #H Immature 0.700 H Granulocytes % Neutrophils % 65.8 Lymphocytes % 24.2 Monocytes % 8.4 Eosinophils % 0.7 Basophils % 0.2 Nucleated Red Blood 0.0 Cells % Immature 0.060 H Granulocytes # Neutrophils # 5.5 Lymphocytes # 2.0 Monocytes # 0.7 Eosinophils # 0.1 Basophils # 0.0 Nucleated Red Blood 0.0 Cells # Prothrombin Time 11.7 L Prothrombin Time 0.9 Ratio INR International 0.85 Normalized Ratio Activated 26.9 Partial Thromboplast Time Fibrinogen 651.0 H Sodium Level 135 Potassium Level 3.8 Chloride Level 105 Carbon Dioxide Level 21 Anion Gap 9 Blood Urea Nitrogen 13 Creatinine 0.56 Est Glomerular > 60 Filtrat Rate mL/min Glucose Level 221 H Uric Acid 5.4 Calcium Level 9.9 Total Bilirubin 0.3 Direct Bilirubin 0.00 Indirect Bilirubin 0.3 Aspartate Amino 21 Transf (AST/SGOT) Alanine 14 Aminotransferase (AL T/SGPT) Alkaline Phosphatase 161 H Total Protein 6.7 Albumin 3.5 Globulin 3.20 Albumin/Globulin 1.09 Ratio Fibronectin NEGATIVE Urine Color YELLOW Urine Clarity CLEAR Urine pH 6.0 Urine Specific 1.008 [place] Urine Ketones NEGATIVE Urine Nitrite NEGATIVE Urine Bilirubin NEGATIVE Urine Urobilinogen NEGATIVE Urine Leukocyte NEGATIVE Esterase Urine Hemoglobin NEGATIVE Urine Glucose 3+ H Urine Total Protein NEGATIVE Test 12/31/18 20:34 01/01/19 00:17 01/01/19 01:20 01/01/19 03:26 Bedside Glucose 143 101 168 197 Test 01/01/19 05:39 01/01/19 07:43 01/01/19 10:51 01/01/19 11:51 Sodium Level 135 Potassium Level 4.2 Chloride Level 105 Carbon Dioxide Level 23 Anion Gap 7 Blood Urea Nitrogen 11 Creatinine 0.57 Est Glomerular > 60 Filtrat Rate mL/min Glucose Level 191 Calcium Level 8.5 Magnesium Level 5.0 H Total Bilirubin 0.4 Direct Bilirubin 0.00 Indirect Bilirubin 0.4 Aspartate Amino 21 Transf (AST/SGOT) Alanine 19 Aminotransferase (AL T/SGPT) Alkaline Phosphatase 168 H Total Protein 6.5 Albumin 3.4 Globulin 3.10 Albumin/Globulin 1.09 Ratio Bedside Glucose 178 226 H 195 Test 01/01/19 12:08 Magnesium Level 5.4 *H Medications Medication Current Medications Lactated Ringer's 1,000 ml @ 125 mls/hr Q8H IV Last administered on 01/01/19at 11:38; Admin Dose 125 MLS/HR; Start 12/31/18 at 17:45; Stop 01/01/19 at 22:00 Lactated Ringer's 1,000 ml @ 75 mls/hr [id number] IV Last administered on 12/31/18at 23:09; Admin Dose 75 MLS/HR; Start 12/31/18 at 21:59 Betamethasone Acet/Betameth SodPhos (Celestone Soluspan) 12 mg Q24H IM Last administered on 12/31/18at 23:28; Admin Dose 12 MG; Start 12/31/18 at 22:00; Stop 01/01/19 at 22:01 Prenat Multivit/ [employer]/Iron/Folic Ac () 1 tab DAILY PO Last administered on 01/01/19at 09:16; Admin Dose 1 TAB; Start 01/01/19 at 09:00 Docusate Sodium (Colace) 100 mg DAILY PO ; Start 01/01/19 at 09:00 Acetaminophen (Tylenol Tab) 650 mg Q4H PRN PO .PAIN OR TEMP Last administered on 01/01/19at 09:21; Admin Dose 650 MG; Start 12/31/18 at 22:00 Ondansetron HCl (Zofran Inj) 4 mg Q6H PRN IV NAUSEA/VOMITING; Start 12/31/18 at 22:00 Diagnostic Test (Pha) (Accu-Chek) 1 ea FBSPP XX ; Start 01/01/19 at 06:00 Diagnostic Test (Pha) (Accu-Chek) 1 ea 2 HOURS AFTER MEALS XX ; Start 01/01/19 at 09:35 Diagnostic Test (Pha) (Accu-Chek) 1 ea FASTING BLOOD SUGAR XX ; Start 01/01/19 at 06:00 Insulin Aspart (Novolog Insulin Pen) NOVOLOG *MODERATE* ALGORITHM WITH MEALS BEDTIME SC Last administered on 01/01/19at 12:02; Admin Dose 4 UNIT; Start 01/01/19 at 07:35 Miscellaneous Information 1 ea NOTE XX ; Start 12/31/18 at 23:00 Glucose (Glutose) 15 gm Q15M PRN PO DECREASED GLUCOSE; Start 12/31/18 at 23:00 Glucose (Glutose) 22.5 gm Q15M PRN PO DECREASED GLUCOSE; Start 12/31/18 at 23:00 Dextrose (D50w Syringe) 25 ml Q15M PRN IV DECREASED GLUCOSE; Start 12/31/18 at 23:00 Dextrose (D50w Syringe) 50 ml Q15M PRN IV DECREASED GLUCOSE; Start 12/31/18 at 23:00 Glucagon (Glucagen) 1 mg Q15M PRN IM DECREASED GLUCOSE; Start 12/31/18 at 23:00 Glucose (Glutose) 15 gm Q15M PRN BUCCAL DECREASED GLUCOSE; Start 12/31/18 at 23:00 Insulin Glargine (Lantus) 10 units DAILY@2000 SC ; Start 01/01/19 at 20:00 Nifedipine (Procardia) 10 mg Q6 PO ; Start 01/01/19 at 13:00 Metformin HCl (Glucophage) 500 mg BID WITH MEALS PO ; Start 01/01/19 at 17:35 Jeffrey ESPARZA MD Jan 01, 2019 13:57
[2019-01-01] MEDS: DOCUSATE SODIUM 100 MG CAP PO SCH (14:37)
[2019-01-01] MEDS: NIFEdipine 10 MG CAP PO SCH ×2 (17:57→23:58)
[2019-01-01] MEDS: INSULIN GLARGINE [LANTus] (100 UNITS/ML) SYG SC SCH (21:27)
[2019-01-01] MEDS: BETAMET NA PHOS/AC(6 MG/ML) 2 ML INJ SYG IM SCH (23:59)
[2019-01-02] MEDS: LACTATED RINGER'S 1,000 ML IV SCH ×3 (00:38→18:57)
[2019-01-02] MEDS: NIFEdipine 10 MG CAP PO SCH ×5 (06:00→23:47)
[2019-01-02] MEDS: ACCU-CHEK XX SCH ×4 (08:30→11:00)
[2019-01-02] MEDS: INSULIN ASPART [NOVOLOG] 3 ML PEN SC SCH ×5 (09:00→21:11)
[2019-01-02] MEDS: PRENATAL VITAMIN PO SCH (09:00)
[2019-01-02] MEDS: DOCUSATE SODIUM 100 MG CAP PO SCH (09:01)
[2019-01-02] MEDS: metFORMIN 500 MG TAB PO SCH ×2 (09:02→17:18)
--- NOTE | 2019-01-02 17:26 | QN ---
Documentation Comment HD#2 labor and Pregestational DM 34+wks GA HGA1c 13 VS stable Gen NAD NST Ressurung [place] No CTXs --->management of BS as per perinatologist --->continue the same management --->possible discharge to [facility]O Wheeler M.D. Jan 02, 2019 17:26
[2019-01-02] MEDS ORDERED: AL HYDROX/MG HYDROX/SIMETH 30 ML CUP PO PRN (17:30)
[2019-01-02] MEDS: INSULIN GLARGINE [LANTus] (100 UNITS/ML) SYG SC SCH (22:13)
[2019-01-03] VITALS (10 sets, daily range): BP systolic 99–123; BP diastolic 53–79; PULSE 58–61; RESP 17–18
[2019-01-03] MEDS: INSULIN ASPART [NOVOLOG] 3 ML PEN SC SCH ×3 (01:08→09:30)
[2019-01-03] MEDS: LACTATED RINGER'S 1,000 ML IV SCH ×4 (01:22→16:37)
[2019-01-03] MEDS: NIFEdipine 10 MG CAP PO SCH ×2 (06:10→12:44)
[2019-01-03] MEDS: PRENATAL VITAMIN PO SCH (09:18)
[2019-01-03] MEDS: DOCUSATE SODIUM 100 MG CAP PO SCH (09:18)
[2019-01-03] MEDS: metFORMIN 500 MG TAB PO SCH ×2 (09:18→17:35)
--- NOTE | 2019-01-03 12:07 | QN ---
Documentation Comment 2 para 1 at 35 weeks of gestation admitted for; 1. Pre-gestational uncontrolled diabetes 2. labor; status post steroids for lung maturity 3. macrosomia 97 percentile Patient's past obstetrical history significant for x1 for preeclampsia Patient reports positive movement, denies vaginal bleeding and leaking fluid, denies uterine contractions heart rate tracing category 1 [place] none Cervix closed per nurse PROCEDURE: OB ultrasound for biophysical profile CLINICAL INDICATION: labor. Gestational diabetes mellitus. TECHNIQUE: Multiple sonographic images of the pelvis were obtained. Transabdominal view of the gravid uterus are available for review. The images were reviewed on a PACS workstation. COMPARISON: US PELVIS 12/31/2018 FINDINGS: breathing movement = 2/2 tone = 2/2 motion = 2/2 Quantitative amniotic fluid volume = 2/2 MY = 17.9 cm Single live intrauterine with cardiac activity at 171 beats per minute. There is a posterior placenta without previa or abruption. IMPRESSION: 1. Single living intrauterine gestation in cephalic position. 2. Biophysical profile = 8/8. 3. MY = 17.9 cm. RPTAT: [facility] Physician Carmen Date Time Electronically viewed and signed by Physician Carmen on 01/03/2019 11:49 JH/ CC: VITA WORRELL MD [phone] Assessment and plan; Continue with present management Follow perinatology recommendations regarding this patient VITA WORRELL MD Jan 03, 2019 12:07
[2019-01-03] MEDS ORDERED: INSULIN ASPART [NOVOLOG] 3 ML PEN SC PRN (13:30)
[2019-01-03] MEDS ORDERED: MISOPROSTOL 200 MCG TAB PR PRN ×2 (17:00→19:00)
[2019-01-03] MEDS ORDERED: METHYLERGONOVINE 0.2 MG INJ IM PRN ×2 (17:00→19:00)
[2019-01-03] MEDS ORDERED: OXYTOCIN 30 UNITS/LR 500 ML IV PRN ×2 (17:00→19:00)
[2019-01-03] MEDS ORDERED: CEFAZOLIN 2 GM/50 ML (PMX) 50 ML IVPB SCH (17:00)
[2019-01-03] MEDS ORDERED: CARBOPROST 250 MCG INJ IM PRN ×2 (17:00→19:00)
[2019-01-03] MEDS ORDERED: OXYTOCIN 30 UNITS/LR 500 ML IV SCH ×2 (17:00→18:47)
--- NOTE | 2019-01-03 17:17 | QN ---
Documentation Comment I was called to evaluate heart rate tracing for decelerations 2 para 1 at 35 weeks of gestation admitted for; 1. Pre-gestational uncontrolled diabetes 2. labor; status post steroids for lung maturity currently on nifedipine p.o. 3. macrosomia 97 percentile Patient's past obstetrical history significant for x1 for preeclampsia heart rate tracing category 2 [place] irregular contractions Patient was extensively counseled to proceed with repeat for heart rate tracing category 2 All benefits and risks including but not limited to infection, bleeding which may require blood transfusion, trauma to other organs including bladder and bowel were discussed with the patient Patient fully understood her plan of care and agreed to proceed VITA WORRELL MD Jan 03, 2019 17:17
[2019-01-03] MEDS ORDERED: OXYTOCIN 30 UNITS/LR 500 ML BAG IV ONE (17:36)
[2019-01-03] MEDS ORDERED: OXYTOCIN 10 UNIT INJ ONE (17:36)
[2019-01-03] MEDS ORDERED: morphine SULFATE/PF (10 MG/10 ML) INJ ONE (17:36)
--- NOTE | 2019-01-03 17:52 | PREAC ---
Date/Time of Note Date/Time of Note DATE: 01/03/19 TIME: 17:49 Anesthesia Eval and Record Evaluation Time Pre-Procedure Interview DATE: 01/03/19 TIME: 17:49 Age 33 Sex female NPO: 8 hrs Preoperative diagnosis IUP, distress Planned procedure Emergancy Csection Past Medical History Past Medical History: Includes Endo: Diabetes GI: Morbid obesity : : Surgery & Anesthesia Issues No known issue Meds Anticoagulation: No Beta Mela within 24 hr: No Reason Beta Mela not given: Pt. not on B-Mela Active Scripts Ibuprofen* (Motrin*) 600 Mg Tab, 600 MG PO Q6H PRN for PAIN AND OR ELEVATED TEMP, #30 TAB Prov:YOLETTE BENTON NP 07/04/17 Cephalexin* (Keflex*) 500 Mg Capsule, 500 MG PO QID for 10 Days, CAP Prov:YOLETTE BENTON NP 07/04/17 Cephalexin* (Cephalexin*) 500 Mg Capsule, 500 MG PO BID for 7 Days, CAP Prov:AMANDA DAVIS MD 06/29/17 Reported Medications Insulin Glargine* (Lantus*) 100 Unit/Ml Soln, 1 UNIT SC QHS, #1 VIAL 12/31/18 [id number] ( 19) 1 Each Tablet, 1 TAB PO DAILY, TAB 06/01/17 Current Medications Lactated Ringer's 1,000 ml @ 75 mls/hr [id number] IV Last administered on 01/03/19at 16:37; Admin Dose 75 MLS/HR; Start 12/31/18 at 21:59 Prenat Multivit/ [place]/Iron/Folic Ac () 1 tab DAILY PO Last administered on 01/03/19at 09:18; Admin Dose 1 TAB; Start 01/01/19 at 09:00 Docusate Sodium (Colace) 100 mg DAILY PO Last administered on 01/03/19at 09:18; Admin Dose 100 MG; Start 01/01/19 at 09:00 Acetaminophen (Tylenol Tab) 650 mg Q4H PRN PO .PAIN OR TEMP Last administered on 01/01/19at 09:21; Admin Dose 650 MG; Start 12/31/18 at 22:00 Ondansetron HCl (Zofran Inj) 4 mg Q6H PRN IV NAUSEA/VOMITING; Start 12/31/18 at 22:00 Miscellaneous Information 1 ea NOTE XX ; Start 12/31/18 at 23:00 Glucose (Glutose) 15 gm Q15M PRN PO DECREASED GLUCOSE; Start 12/31/18 at 23:00 Glucose (Glutose) 22.5 gm Q15M PRN PO DECREASED GLUCOSE; Start 12/31/18 at 23:00 Dextrose (D50w Syringe) 25 ml Q15M PRN IV DECREASED GLUCOSE; Start 12/31/18 at 23:00 Dextrose (D50w Syringe) 50 ml Q15M PRN IV DECREASED GLUCOSE; Start 12/31/18 at 23:00 Glucagon (Glucagen) 1 mg Q15M PRN IM DECREASED GLUCOSE; Start 12/31/18 at 23:00 Glucose (Glutose) 15 gm Q15M PRN BUCCAL DECREASED GLUCOSE; Start 12/31/18 at 23 :00 Insulin Glargine (Lantus) 10 units DAILY@2000 SC Last administered on 01/02/19at 22:13; Admin Dose 10 UNITS; Start 01/01/19 at 20:00 Nifedipine (Procardia) 10 mg Q6 PO Last administered on 01/03/19at 12:44; Admin Dose 10 MG; Start 01/01/19 at 13:00 Metformin HCl (Glucophage) 500 mg BID WITH MEALS PO Last administered on 01/03/19at 09:18; Admin Dose 500 MG; Start 01/01/19 at 17:35 Al Hydrox/Mg Hydrox/Simethicone (Mag-Al Plus) 30 ml Q4H PRN PO GASTROINTESTINAL UPSET Last administered on 01/02/19at 17:24; Admin Dose 30 ML; Start 01/02/19 at 17:30 Insulin Aspart (Novolog Insulin Pen) 60-12,0=0 units 121-14... PC MEALS PRN SC ELEVATED GLUCOSE; Start 01/03/19 at 13:30 Cefazolin Sodium/ Dextrose 50 ml @ 100 mls/hr ONCE IVPB ; Start 01/03/19 at 17:00 Oxytocin/Lactated Ringer's 500 ml @ 125 mls/hr POST IV ; Start 01/03/19 at 17:00 Oxytocin/Lactated Ringer's 500 ml @ 0 mls/hr ONCE PRN IV .VAGINAL BLEEDING; Start 01/03/19 at 17:00 Methylergonovine Maleate (Methergine) 0.2 mg ONCE PRN IM .VAGINAL BLEEDING; Start 01/03/19 at 17:00 Carboprost Tromethamine (Hemabate) 250 mcg ONCE PRN IM .VAGINAL BLEEDING; Start 01/03/19 at 17:00 Misoprostol (Cytotec) 1,000 mcg ONCE PRN ID .VAGINAL BLEEDING; Start 01/03/19 at 17:00 Meds reviewed: Yes Allergies Coded Allergies: No Known Allergy (Unverified , 06/29/17) Allergies Reviewed: Yes Labs/Studies Labs Reviewed: Reviewed by anesthesiologist Result Diagram: 01/03/19 1726 01/01/19 0539 Laboratory Tests 01/03/19 17:26 test: Positive Studies: ECG Pre-procedure Exam Last vitals Vital Signs Date Temp Pulse Resp B/P (MAP) Pulse Ox O2 O2 Flow FiO2 Time Delivery Rate 12/31/18 98.4 90 119/77 13:57 (91) Airway: Adequate mouth opening, Adequate thyromental dist Mallampati: Mallampati II Teeth: Normal Lung: Normal Heart: Normal ASA Physical Status ASA physical status: 3 Emergency: E Planned Anesthetic Neuraxial: Spinal Planned Pain Management Sub-arachniod narcotics, Parenteral pain med Pre-operative Attestations Prior to commencing anesthesia and surgery, the patient was re-evaluated, there was verification of: *The patient's identity *The results of appropriate recent lab work and preoperative vital signs *The above evaluation not changing prior to induction *Anesthetic plan, risk benefits, alternative and complications discussed with patient/family; questions answered; patient/family understands, accepts and wishes to proceed. CHRISTIAN AMATO MD Jan 03, 2019 17:52
--- NOTE | 2019-01-03 18:36 | PAC ---
Date/Time of Note Date/Time of Note DATE: 01/03/19 TIME: 18:35 Post-Anesthesia Notes Post-Anesthesia Note Last documented vital signs Vital Signs Date Temp Pulse Resp B/P (MAP) Pulse Ox O2 O2 Flow FiO2 Time Delivery Rate 12/31/18 98.4 90 119/77 13:57 (91) Activity: WNL Respiratory function: WNL Cardiovascular function: WNL Mental status: Baseline Pain reasonably controlled: Yes Hydration appropriate: Yes Nausea/Vomiting absent: Yes Comments BP:124/67, P:78, Spo2:100%, T:98,8 CHRISTIAN AMATO MD Jan 03, 2019 18:36
--- NOTE | 2019-01-03 18:42 | OPR ---
Operative Report Planned Procedure Procedure date Jan 03, 2019 Procedure(s) Repeat section Performed by see signature line Cell Assembly Pinner: MANOJ JO MD Pre-procedure diagnosis 35 weeks of gestation with uncontrolled pre-gestational diabetes and heart rate tracing category 2 labor status post betamethasone for lung maturity [id number] Anesthesia Type: Zfoih7e spinal Post-Procedure Post-procedure diagnosis 35 weeks of gestation with uncontrolled pre-gestational diabetes and heart rate tracing category 2 labor status post betamethasone for lung maturity Findings Live Baby [boy], Apgars [8] and [8], weight [3900grams/8 pounds 10 oz], [vtx] presentation EBL 500 cc IV fluids 1400 cc Urine output 450 cc Estimated Blood Loss: 400 - 500 mls Specimen(s) placenta Grafts/Implant(s) none Complication(s) none Pt Condition post procedure: stable Disposition: PACU Procedure Description Patient was taken to the operating room after adequate amount of anesthesia was given patient was prepped and draped in normal sterile fashion Low transverse Pfannenstiel skin incision was made. Incision was carried through to the underlying layer of fascia using Bovie Fascia was incised in the midline and incision was extended bilaterally using Bovie Both anterior and posterior edge of the fascia were from underlying layer of rectus muscles Rectus muscles were in the midline and peritoneum was identified and entered sharply without any difficulty Peritoneum was extended bilaterally manually. A bladder flap was created. Then a low transverse uterine incision was made on the uterus Fetus was delivered from vertex presentation and after 30 seconds delayed cord clamping the fetus was handed immediately to the waiting ICU team Placenta was delivered manually intact. Uterus was cleared off of all clots and debris Uterine incision was closed with 1 Vicryl suture in both running locked and a second layer imbricating fashion Multiple irrigations were performed and excellent hemostasis was noted. Both adnexa appeared normal Peritoneal closure proceeded with 2-0 Vicryl in a running fashion. Rectus muscles were reapproximated with 2-0 Vicryl Excellent hemostasis was confirmed Fascia was closed with 0-Vicryl suture in 2 separate segments in a running fashion Subcutaneous layer was closed with 0- plain suture in a continuous fashion Skin was closed with end-sorb yeni and Dermabond glue All sponge, lap, needle counts were reported to be correct Patient tolerated the procedure well and taken back to recovery room in a stable condition VITA WORRELL MD Jan 03, 2019 18:42
[2019-01-03] MEDS ORDERED: LACTATED RINGER'S 1,000 ML IV SCH (18:47)
[2019-01-03] MEDS ORDERED: AZITHROMYCIN 500MG/NS (PMX) 250 ML IVPB ONE (19:00)
[2019-01-03] MEDS ORDERED: ACETAMINOPHEN 325 MG TAB PO PRN (19:00)
[2019-01-03] MEDS ORDERED: OXYCODONE/ACETAMINOPHEN (5/325) TAB PO PRN (19:00)
[2019-01-03] MEDS ORDERED: LANOLIN HPA 1 PKT TOP PRN (19:00)
[2019-01-03] MEDS ORDERED: ONDANSETRON 4 MG INJ IV PRN ×2 (19:00)
[2019-01-03] MEDS ORDERED: DIPHENHYDRAMINE 50 MG INJ IV PRN (19:00)
[2019-01-03] MEDS ORDERED: morphine 2 MG INJ IV PRN (19:00)
[2019-01-03] MEDS ORDERED: BISACODYL 10 MG SUPP PR PRN (19:00)
[2019-01-03] MEDS ORDERED: NALOXONE (0.4 MG/ML) INJ IV PRN (19:00)
[2019-01-03] MEDS ORDERED: SENNA/DOCUSATE NA (8.6MG/50MG) TAB PO PRN (19:00)
[2019-01-03] MEDS ORDERED: MAGNESIUM HYDROXIDE 30ML CUP PO PRN (19:00)
[2019-01-03] MEDS: KETOROLAC 30 MG INJ IV PRN (20:36)
[2019-01-04 00:30] VITALS: BP 124/74; PULSE 56; RESP 17
[2019-01-04] MEDS: CEFAZOLIN 1 GM/50 ML (PMX) 50 ML IVPB SCH ×4 (02:51→17:41)
[2019-01-04 03:35] VITALS: BP 108/73; PULSE 61; RESP 17
[2019-01-04] MEDS: KETOROLAC 30 MG INJ IV PRN ×2 (06:36→13:58)
[2019-01-04 16:05] VITALS: BP 128/84; PULSE 76; RESP 18
--- NOTE | 2019-01-04 16:54 | QN ---
Documentation Comment POD#1 is stable afebrile no Vb +Flatus Adequate urine VS stable Gen NAD Abd soft NT ND Dressing to be removed Genitalia Deferred --->Discharge plan tomorrow --->Ambulation ROLANDO MUKHERJEE M.D. Jan 04, 2019 16:54
[2019-01-04] MEDS: OXYCODONE/ACETAMINOPHEN (5/325) TAB PO PRN ×2 (17:41→21:56)
[2019-01-04] MEDS: metFORMIN (XR) 500 MG TAB PO SCH (17:55)
[2019-01-04] MEDS: ACCU-CHEK XX SCH ×2 (17:55→21:31)
[2019-01-04 20:30] VITALS: BP 122/78; PULSE 73; RESP 18
[2019-01-05] MEDS: IBUPROFEN 600 MG TAB PO PRN ×3 (00:41→13:49)
[2019-01-05 04:15] VITALS: BP 131/80; PULSE 65; RESP 18
[2019-01-05 08:00] VITALS: BP 105/73; PULSE 73; RESP 18
[2019-01-05] MEDS: metFORMIN (XR) 500 MG TAB PO SCH ×2 (08:05→18:26)
[2019-01-05] MEDS: ACCU-CHEK XX SCH ×2 (08:30→11:33)
[2019-01-05] MEDS: OXYCODONE/ACETAMINOPHEN (5/325) TAB PO PRN ×2 (10:08→13:49)
--- NOTE | 2019-01-05 14:10 | PN ---
Date/Time of Note Date/Time of Note DATE: 01/05/19 TIME: 14:05 OB Subjective Subjective Subjective POD#2 Patient is doing well. She denies nausea, vomiting, shortness of breath, chest pain, headache. She has been ambulating without difficulty, tolerating regular diet. Pain is well controlled on current medications OB Objective Objective Objective VS - Last 72 Hours, by Label Date Temp Pulse Resp B/P (MAP) Pulse Ox O2 O2 Flow FiO2 Time Delivery Rate 01/05/19 98.1 73 18 105/73 Room Air 08:00 (84) 01/05/19 98.0 65 18 131/80 Room Air 04:15 (97) 01/04/19 98.2 73 18 122/78 Room Air 20:30 (93) 01/04/19 98.3 76 18 128/84 Room Air 16:05 (99) 01/04/19 98.0 61 17 108/73 97 Room Air 03:35 (85) 01/04/19 98.6 56 17 124/74 96 Room Air 00:30 (91) 01/03/19 98.4 58 17 114/79 96 Room Air 23:45 (91) 01/03/19 98.6 61 17 120/76 97 Room Air 22:45 (91) 01/03/19 99.0 58 18 115/69 97 Room Air 22:12 (84) 01/03/19 98.3 58 18 123/67 21:30 (85) 01/03/19 61 18 115/65 Room Air 21:15 (82) 01/03/19 61 18 112/67 21:00 (82) 01/03/19 60 18 110/68 20:45 (82) 01/03/19 59 18 115/65 96 Room Air 20:30 (82) 01/03/19 59 18 99/53 (68) 96 Room Air 20:00 01/03/19 98.3 58 18 108/65 Room Air 19:45 (79) General: AAO X 3, comfortable, NAD, appropriate mood and affect. ABD: +BS. Soft, non-tender. Uterus 2 cm below umbilicus Incision: Clear, dry, intact. No erythema, drainage or induration. Flank: No CVA tenderness (B/L) LE: Mild edema. No clubbing, cyanosis, thigh or calf tenderness (B/L). Homans 'sign is negative OB Assessment/Plan Other plan: 33 years old 2 para 2-0-0-2 s/p delivery at 34 weeks and 6 days POD#2 - AF, VSS - She is doing well, has no complaints - Blood pressure are within normal limit baby is in NICU - Continue care DIONNE LYNN Jan 05, 2019 14:10
[2019-01-05 16:00] VITALS: BP 124/80; PULSE 74; RESP 19
[2019-01-05 20:00] VITALS: BP 134/76; PULSE 72; RESP 20
[2019-01-06 04:42] VITALS: BP 122/64; PULSE 74; RESP 20
[2019-01-06] MEDS: IBUPROFEN 600 MG TAB PO PRN ×2 (05:46→16:04)
[2019-01-06 08:00] VITALS: BP 119/80; PULSE 66; RESP 18
[2019-01-06] MEDS: metFORMIN (XR) 500 MG TAB PO SCH (09:04)
[2019-01-06] MEDS: OXYCODONE/ACETAMINOPHEN (5/325) TAB PO PRN (10:10)
--- NOTE | 2019-01-06 14:48 | PD.PPDC ---
REGISTERED MEDICAL ASSISTANT Discharge Instruction Provider Information Physician Information Idalmis Lakhani MD Condition [id number] Patient Condition: Aminx1r Good Diet Ydecy1Xe Diet: Kwiqa4i Resume Regular Diet Activity/Restrictions [id number] Activity: Sivqn4u Normal Activity Nupug9Dt Restrictions: Fmlwr2b Minimize Walking Minimize Stair-climbing No Sexual Activity Nothing in the Vagina No [place] No Tampons, douche Follow-up Follow-up with Physician: 2, 6, Week/Weeks Return to clinic for [id number] CREMATORY ATTENDANT Instructions: Njelt6c Fever greater than 101 Chills Worsening abdominal pain Excessive Vaginal Bleeding More than 2 pads per hour Unable to tolerate diet IDALMIS LAKHANI MD Jan 06, 2019 14:48
[2019-01-06] MEDS ORDERED: IBUP-1542 PO (14:50)
[2019-01-06] MEDS ORDERED: METF500T3 PO (14:50)
[2019-01-06] MEDS ORDERED: HYDR-4011 PO (14:51)
--- NOTE | 2019-01-06 14:57 | PN ---
Date/Time of Note Date/Time of Note DATE: 01/06/19 TIME: 14:52 OB Subjective Subjective Subjective Denies any complaint, Pain well controlled with PO Pain meds. Denies any nausea or vomiting, Had bowel movement,.Ambulatintg, toelerated regular diet,Uinrated Denies any depressive symptoms' OB Objective Objective Objective GA: A&O, NAD Abdomen: Soft, appropriate tenderness in the section incision. Lungs; CTA Bilaterally CV: RRR Extremities: No calf tenderness, no click, no cord palpable VS - Last 72 Hours, by Label Date Temp Pulse Resp B/P (MAP) Pulse Ox O2 O2 Flow FiO2 Time Delivery Rate 01/06/19 97.6 66 18 119/80 Room Air 08:00 (93) 01/06/19 98.1 74 20 122/64 Room Air 04:42 (83) 01/05/19 98.1 72 20 134/76 Room Air 20:00 (95) 01/05/19 98.2 74 19 124/80 Room Air 16:00 (95) 01/05/19 98.1 73 18 105/73 Room Air 08:00 (84) 01/05/19 98.0 65 18 131/80 Room Air 04:15 (97) 01/04/19 98.2 73 18 122/78 Room Air 20:30 (93) 01/04/19 98.3 76 18 128/84 Room Air 16:05 (99) 01/04/19 98.0 61 17 108/73 97 Room Air 03:35 (85) 01/04/19 98.6 56 17 124/74 96 Room Air 00:30 (91) 01/03/19 98.4 58 17 114/79 96 Room Air 23:45 (91) 01/03/19 98.6 61 17 120/76 97 Room Air 22:45 (91) 01/03/19 99.0 58 18 115/69 97 Room Air 22:12 (84) 01/03/19 98.3 58 18 123/67 21:30 (85) 01/03/19 61 18 115/65 Room Air 21:15 (82) 01/03/19 61 18 112/67 21:00 (82) 01/03/19 60 18 110/68 20:45 (82) 01/03/19 59 18 115/65 96 Room Air 20:30 (82) 01/03/19 59 18 99/53 (68) 96 Room Air 20:00 01/03/19 98.3 58 18 108/65 Room Air 19:45 (79) Laboratory Tests Test 01/05/19 15:22 01/05/19 21:17 01/06/19 08:51 01/06/19 11:21 Bedside Glucose 116 139 90 99 OB Assessment/Plan Other Assessment: POD #3 Doing well. Stable for discharge. IDALMIS LAKHANI MD Jan 06, 2019 14:57
[2019-01-06 16:00] VITALS: BP 123/80; PULSE 75; RESP 18
--- NOTE | 2019-01-06 16:07 | DS ---
Date/Time of Note Date/Time of Note DATE: 01/06/19 TIME: 16:03 Discharge Summary Admission/Discharge Info Admit Date/Time Dec 31, 2018 at 22:00 Discharge Date/Time 01/06/2019 Discharge Diagnosis Same Patient Condition: Good Consults None Procedures Repeat section Hx of Present Illness 33-year-old 2 para 1 at 34 weeks and 4 days of gestation with estimated date of delivery February 07, 2019 presented with decreased movements and uterine contractions Antepartum course was complicated by pre-gestational diabetes poorly controlled, as well as polyhydramnios. She was on insulin. Patient presented with labor. She was a status post tocolysis with magnesium and received 2 dose of steroid. She eventually underwent repeat section due to continuous contractions as well as category 2 tracing. Her intraoperative and postoperative course was not complicated. Baby however was admitted to NICU due to prematurity and uncontrolled maternal diabetes during . Postoperatively she did well. Her blood sugar was controlled using metformin and was well controlled. On postoperative day #3 patient was a stable enough for discharge home. She was ambulating. Tolerating regular ADA diet and was pumping breast. Baby was a seen in NICU due to prematurity. She was advised to have a follow-up in 2 weeks and 6 weeks with OB office or sooner as needed. Vital was stable prior to discharge home. She was afebrile. She tolerates a regular diet and was ambulating her pain was well controlled with p.o. pain medication. Hospital Course Complicated by delivery, uncontrolled diabetes during , Post repeat section Home Meds Active Scripts Hydrocodone/Acetaminophen ([place] 5-325 Tablet) 1 Each Tablet, 1 EACH PO QID, #30 TAB 0 Refills Prov:IDALMIS LAKHANI MD 01/06/19 Metformin* (Glucophage* XR) 500 Mg Tab.sr.24h, 500 MG PO BID WITH MEALS for 30 Days, #60 2 Refills Prov:IDALMIS LAKHANI MD 01/06/19 Ibuprofen* (Ibuprofen*) 600 Mg Tablet, 600 MG PO Q6H PRN for PAIN, #30 TAB 3 Refills Prov:IDALMIS LAKHANI MD 01/06/19 Ibuprofen* (Motrin*) 600 Mg Tab, 600 MG PO Q6H PRN for PAIN AND OR ELEVATED TEMP, #30 TAB Prov:YOLETTE BENTON NP 07/04/17 Reported Medications [id number] ( 19) 1 Each Tablet, 1 TAB PO DAILY, TAB 06/01/17 Discontinued Reported Medications Insulin Glargine* (Lantus*) 100 Unit/Ml Soln, 1 UNIT SC QHS, #1 VIAL 12/31/18 Discontinued Scripts Cephalexin* (Keflex*) 500 Mg Capsule, 500 MG PO QID for 10 Days, CAP Prov:YOLETTE BENTON NP 07/04/17 Cephalexin* (Cephalexin*) 500 Mg Capsule, 500 MG PO BID for 7 Days, CAP Prov:AMANDA DAVIS MD 06/29/17 Follow-up Plan In 2 weeks and 6 weeks from her OB office or sooner as needed Primary Care Provider Care Physician No Primary Time spent on discharge: > 30 minutes Pending Labs Laboratory Tests Test 01/05/19 21:17 01/06/19 08:51 01/06/19 11:21 Bedside Glucose 139 mg/dL (70-220) 90 mg/dL (70-220) 99 mg/dL (70-220) IDALMIS LAKHANI MD Jan 06, 2019 16:07
--- NOTE | 2019-01-07 16:53 | DELSUM ---
Delivery Summary A-C Datetime Report Generated by CPN: 01/07/2019 16:53 DELIVERY PERSONNEL Internet Marketer: Jamir, Altagracia MATERNAL INFORMATION Delivery Anesthesia: Spinal Medications in Delivery: SEE ANESTHESIA RECORDS Delivery QBL (ml): 600 Placenta Cultured: No Maternal Complications: Other Other Maternal Complications: late decels, tachcardia, previous section LABOR SUMMARY EDC: 02/08/2019 00:00 No. Babies in Womb: 1 Attempted: No Labor Anesthesia: None LABOR INFORMATION Reason for Induction: Not Applicable Group B Beta Strep: Not Done Antibiotics # of Doses: Ancef 2 grams Antibiotics Time of Last Dose: 01/03/2019 17:38 Steroids Given: Full Course Reason Steroids Not Administered: Not Applicable MEMBRANES Membranes Rupture Method: Artificial Rupture of Membranes: 01/03/2019 18:02 Length of Rupture (hr): 0.00 Amniotic Fluid Color: Clear Amniotic Fluid Amount: Moderate Amniotic Fluid Odor: None STAGES OF LABOR Stage 3 hr: 0 Stage 3 min: 1 CSECTION DELIVERY Primary Indication: Repeat Elective Other Primary Indication: Cathegory II tracing/In labor Secondary Indication: N/A CSection Urgency: Non Elective CSection Incidence: Repeat Labor: Labor Elective: Nonelective CSection Incision: Lower Uterine Transverse BABY A INFORMATION Delivery Date/Time: 01/03/2019 18:02 Method of Delivery: Born in Route : No : N/A Forceps: N/A Vacuum Extraction: N/A Shoulder Dystocia : N/A SHOULDER DYSTOCIA BABY A Delivery Date/Time: 01/03/2019 18:02 PRESENTATION/POSITION BABY A Presentation: Cephalic Cephalic Presentation: Vertex Vertex Position: Right Occipital Posterior Breech Presentation: N/A PLACENTA INFORMATION BABY A Placenta Delivery Time : 01/03/2019 18:03 Placenta Method of Delivery: Manual Removal Placenta Status: Delivered SCORES BABY A Heart Rate 1 min: >100 bpm Resp Effort 1 min: Good Cry Reflex Irritability 1 min: Cough/Sneeze/Pulls Away Muscle Tone 1 min: Active Motion Color 1 min: Blue/Pale Resuscitation Effort 1 min: Tactile Stimulation; Oxygen SCORE 1 MIN: 8 Heart Rate 5 min: >100 bpm Resp Effort 5 min: Good Cry Reflex Irritability 5 min: Cough/Sneeze/Pulls Away Muscle Tone 5 min: Active Motion Color 5 min: Blue/Pale Resuscitation Effort 5 min: Tactile Stimulation; Oxygen SCORE 5 MIN: 8 INFORMATION BABY A Gestational Age at Delivery: 34.6 Gestational Status: Late - 34- 36.6 Weeks Outcome : Liveborn, with signs of life Condition : Stable Infant Sex: Male IDENTIFICATION/MEDS BABY A ID Band Number: [id number] ID Band Location: Other Sensor Applied: No Sensor Number: n/a Sensor Location : Other Vitamin K Given : Not Given Erythromycin Given: Not Given WEIGHT/LENGTH BABY A Infant Birthweight (gm): 3900 Weight (lb): 8 Weight (oz): 10 Length (in): 21.25 Length (cm): 53.98 CORD INFORMATION BABY A No. Cord Vessels: 3 Nuchal Cord : N/A Cord Blood Taken: Yes Infant Suction: Mouth; Nose ASSESSMENT BABY A Infant Complications: Other Infant Complications- Other: Cathegory II tracing Physical Findings at Delivery: Within Normal Limits Infant Respirations: Tachypnea Medication Aide/ALS Called : Yes Infant Care By: Destiny RT/Emmy RN Transferred To: NICU
== END 2019-01-06 16:40 | disposition home or self-care (01) | DRG 786 ==
LOC: OBT 13:23 → L-D 13:24 → OBT 22:00 → L-D 01-01 02:22 → PP1 01-03 22:46
PROVIDERS: ADMIT Obstetrics & Gynecology Gynecology; ATTEND Obstetrics & Gynecology
PROC: 3E033VJ Introduction of Other Hormone into Peripheral Vein, Percutaneous Approach (ICD-10-PCS; 2019-01-03)
PROC: 10D00Z1 Extraction of Products of Conception, Low, Open Approach (ICD-10-PCS; principal; 2019-01-03 17:15)
DX: O60.13X0 Preterm labor second trimester with preterm delivery third trimester, not applicable or unspecified (principal); O24.12 Pre-existing type 2 diabetes mellitus, in childbirth; O76 Abnormality in fetal heart rate and rhythm complicating labor and delivery; O65.5 Obstructed labor due to abnormality of maternal pelvic organs; O34.211 Maternal care for low transverse scar from previous cesarean delivery; O40.3XX0 Polyhydramnios, third trimester, not applicable or unspecified; E11.9 Type 2 diabetes mellitus without complications; Z3A.34 34 weeks gestation of pregnancy; Z37.0 Single live birth; Z79.4 Long term (current) use of insulin
CPT/HCPCS: 76815; 76818; 80053; 81003; 82731; 82962; 83735; 84560; 85025; 85384; 85610; 85730; 86592; 86850; 86900; 86901; 87086; 88307; 96360; 96361; 99464; G0463; J0456; J0690; J0702; J1200; J1815; J1885; J2274; J2405; J2590; J3475; J7120